=== PATIENT | female | born 1965 | race Caucasian/White ===

== ENCOUNTER 2023-02-14 19:05 | Inpatient (IN) | payer OTHER ==
[2023-02-14 19:17] VITALS: RESP 18
[2023-02-14] MEDS ORDERED: ACETAMINOPHEN 1000 MG/100 ML BAG IVPB ONE (20:47)
[2023-02-14] MEDS ORDERED: ACETAMINOPHEN INJECTION 100 ML IVPB ONE (21:16)
[2023-02-14 21:33] LABS: BASO % 0.5 % (0-2.0); EOS % 0.3 % (0-4.5); HEMATOCRIT 16.7 % (32.4-45.2); LYMPH % 8.2 % (8-40); MCH 23.4 pg (25.7-33.7); MCHC 31.7 g/dl (32.0-36.0); MEAN CELL VOLUME 73.8 fl (80-96); MEAN PLT VOLUME 6.5 fl (7.5-11.1); MONO % 7.4 % (3.8-10.2); NEUT % 83.6 % (42.8-82.8); PLATELET COUNT 462 10^3/uL (134-434); RBC 2.26 M/mm3 (3.60-5.2); RDW 14.1 % (11.6-15.6); WHITE BLOOD COUNT 12.4 K/mm3 (4.0-10.0)
[2023-02-14 21:46] LABS: HEMOGLOBIN 5.3 GM/dL (10.7-15.3)
[2023-02-14 21:54] LABS: INR 1.12 (0.83-1.09)
[2023-02-14 21:57] LABS: ACTIVATED PTT 33.5 SECONDS (25.2-36.5); POTASSIUM 4.2 mmol/L (3.5-5.1)
[2023-02-14 22:17] LABS: ALBUMIN 2.8 g/dl (3.4-5.0); BILIRUBIN,TOTAL 0.2 mg/dL (0.2-1); BLOOD UREA NITROGEN 11.8 mg/dL (7-18); CALCIUM 8.7 mg/dL (8.5-10.1); CREATININE 0.6 mg/dL (0.55-1.3); N-TERMINAL BNP 687.8 pg/ml (5-125); TOT PROT 6.7 g/dl (6.4-8.2)
[2023-02-14] MEDS ORDERED: morphine CARPU-JECT 2 MG/1 ML DISP.SYRIN IVPUSH ONE (23:40)
[2023-02-14] MEDS ORDERED: ONDANSETRON 4 MG/2 ML VIAL IVPUSH ONE (23:41)
[2023-02-14] MEDS ORDERED: ONDANSETRON 4 MG/2 ML VIAL ONE (23:58)
[2023-02-15] MEDS ORDERED: ONDANSETRON 4 MG/2 ML VIAL IVPUSH PRN (03:06)
[2023-02-15] MEDS ORDERED: MAG HYDROX/AL HYDROX/SIMETH 30 ML UNIT-DOSE CUP PO PRN (03:07)
[2023-02-15] MEDS: ACETAMINOPHEN 1000 MG/100 ML BAG IVPB PRN ×2 (03:41→18:58)
[2023-02-15 04:51] VITALS: BMI 22.9
[2023-02-15 04:58] LABS: RETICULOCYTES 2.45 % (0.5-1.5)
[2023-02-15 10:04] LABS: BASO % 0.4 % (0-2.0); EOS % 0.5 % (0-4.5); HEMATOCRIT 19.6 % (32.4-45.2); LYMPH % 7.9 % (8-40); MCH 25.6 pg (25.7-33.7); MCHC 33.4 g/dl (32.0-36.0); MEAN CELL VOLUME 76.6 fl (80-96); MEAN PLT VOLUME 7.1 fl (7.5-11.1); MONO % 6.8 % (3.8-10.2); NEUT % 84.4 % (42.8-82.8); PLATELET COUNT 380 10^3/uL (134-434); RBC 2.56 M/mm3 (3.60-5.2); RDW 15.3 % (11.6-15.6); WHITE BLOOD COUNT 10.7 K/mm3 (4.0-10.0)
[2023-02-15 10:09] LABS: HEMOGLOBIN 6.5 GM/dL (10.7-15.3)
[2023-02-15 10:23] LABS: CALCIUM 8.7 mg/dL (8.5-10.1)
[2023-02-15 10:25] LABS: BLOOD UREA NITROGEN 10.1 mg/dL (7-18)
[2023-02-15 10:28] LABS: CREATININE 0.8 mg/dL (0.55-1.3); PHOSPHOROUS 4.2 mg/dL (2.5-4.9)
[2023-02-15] MEDS: oxyCODONE HCL 5 MG TABLET PO PRN ×2 (12:06→16:02)
[2023-02-15 15:54] LABS: EPI CELLS 30 /uL (0-25.1); HYALINE CASTS 1 /uL (0-3.1); PH,URINE 7.5 (5.0-8.0); URINE APPEARANCE CLOUDY; URINE BACTERIA 201 /uL (0-1359); URINE BILIRUBIN NEGATIVE (NEGATIVE); URINE COLOR YELLOW; URINE GLUCOSE (UA) NEGATIVE (NEGATIVE); URINE KETONE NEGATIVE (NEGATIVE); URINE LEUK ESTERASE NEGATIVE (NEGATIVE); URINE NITRITE NEGATIVE (NEGATIVE); URINE PROTEIN TRACE (NEGATIVE); URINE RBC 52 /uL (0-23.9); URINE UROBILINOGEN 0.2 mg/dL (0.2-1.0); URINE WBC 40 /uL (0-25.8)
[2023-02-15 20:31] LABS: BASO % 0.3 % (0-2.0); EOS % 0.1 % (0-4.5); HEMATOCRIT 22.4 % (32.4-45.2); HEMOGLOBIN 7.6 GM/dL (10.7-15.3); LYMPH % 5.8 % (8-40); MCHC 34.1 g/dl (32.0-36.0); MEAN CELL VOLUME 76.4 fl (80-96); MONO % 7.4 % (3.8-10.2); NEUT % 86.4 % (42.8-82.8); PLATELET COUNT 356 10^3/uL (134-434); RBC 2.94 M/mm3 (3.60-5.2); RDW 14.8 % (11.6-15.6)
[2023-02-16] MEDS ORDERED: PIPERACILLIN/TAZOB 3.375 GM 3.375 GM in DEXTROSE 5%-WATER - 50 ML IVPB ONE (00:52)
[2023-02-16] MEDS ORDERED: VANCOMYCIN/WATER FOR INJ (PEG) 750 MG/150 ML BAG IVPB ONE (01:15)
[2023-02-16] MEDS: oxyCODONE HCL 5 MG TABLET PO PRN ×3 (06:09→20:01)
[2023-02-16 09:00] LABS: BASO % 0.3 % (0-2.0); EOS % 0.4 % (0-4.5); HEMOGLOBIN 7.9 GM/dL (10.7-15.3); MCH 25.5 pg (25.7-33.7); MCHC 32.9 g/dl (32.0-36.0); MEAN CELL VOLUME 77.6 fl (80-96); MEAN PLT VOLUME 7.5 fl (7.5-11.1); MONO % 6.2 % (3.8-10.2); NEUT % 88.1 % (42.8-82.8); PLATELET COUNT 389 10^3/uL (134-434); RBC 3.09 M/mm3 (3.60-5.2); WHITE BLOOD COUNT 15.8 K/mm3 (4.0-10.0)
[2023-02-16 09:25] LABS: CALCIUM 8.8 mg/dL (8.5-10.1)
[2023-02-16 09:26] LABS: ALBUMIN 2.4 g/dl (3.4-5.0); BLOOD UREA NITROGEN 9.3 mg/dL (7-18)
[2023-02-16 09:29] LABS: BILIRUBIN,TOTAL 0.5 mg/dL (0.2-1); CREATININE 0.8 mg/dL (0.55-1.3)
[2023-02-16] MEDS ORDERED: SENNOSIDES 8.6MG TABLET (FP) PO PRN (10:07)
[2023-02-16] MEDS: CEFTRIAXONE 1 GM in DEXTROSE 5%-WATER - 50 ML IVPB SCH (12:19)
[2023-02-16] MEDS: POLYETHYLENE GLYCOL (HEALTHYLAX) 3350 17 GM PACKET PO SCH (12:19)
[2023-02-16] MEDS: ACETAMINOPHEN 500 MG TABLET (FP) PO PRN (16:07)
[2023-02-17] MEDS: ACETAMINOPHEN 500 MG TABLET (FP) PO PRN ×2 (07:45→17:16)
[2023-02-17] MEDS: oxyCODONE HCL 5 MG TABLET PO PRN ×3 (08:54→21:21)
[2023-02-17 09:21] LABS: BASO % 0.3 % (0-2.0); EOS % 0.2 % (0-4.5); HEMATOCRIT 24.5 % (32.4-45.2); HEMOGLOBIN 8.2 GM/dL (10.7-15.3); LYMPH % 5.9 % (8-40); MCH 25.4 pg (25.7-33.7); MCHC 33.2 g/dl (32.0-36.0); MEAN CELL VOLUME 76.3 fl (80-96); MONO % 7.4 % (3.8-10.2); NEUT % 86.2 % (42.8-82.8); PLATELET COUNT 362 10^3/uL (134-434); RBC 3.21 M/mm3 (3.60-5.2); RDW 15.7 % (11.6-15.6); WHITE BLOOD COUNT 15.8 K/mm3 (4.0-10.0)
[2023-02-17] MEDS: POLYETHYLENE GLYCOL (HEALTHYLAX) 3350 17 GM PACKET PO SCH (09:53)
[2023-02-17] MEDS: CEFTRIAXONE 1 GM in DEXTROSE 5%-WATER - 50 ML IVPB SCH (09:53)
[2023-02-18] MEDS: ACETAMINOPHEN 500 MG TABLET (FP) PO PRN ×2 (03:06→19:06)
[2023-02-18] MEDS: IRON SUCROSE INJECTION 200 MG in SODIUM CHLORIDE 90 ML IVPB SCH (06:22)
[2023-02-18] MEDS: POLYETHYLENE GLYCOL (HEALTHYLAX) 3350 17 GM PACKET PO SCH ×2 (09:54→21:16)
[2023-02-18] MEDS: CEFTRIAXONE 1 GM in DEXTROSE 5%-WATER - 50 ML IVPB SCH (09:54)
[2023-02-18] MEDS: oxyCODONE HCL 5 MG TABLET PO PRN ×3 (09:55→21:18)
[2023-02-19] MEDS: oxyCODONE HCL 5 MG TABLET PO PRN ×3 (06:23→22:03)
[2023-02-19] MEDS: IRON SUCROSE INJECTION 200 MG in SODIUM CHLORIDE 90 ML IVPB SCH (06:23)
[2023-02-19] MEDS: CEFTRIAXONE 1 GM in DEXTROSE 5%-WATER - 50 ML IVPB SCH (09:12)
[2023-02-19] MEDS: POLYETHYLENE GLYCOL (HEALTHYLAX) 3350 17 GM PACKET PO SCH ×2 (09:22→22:03)
[2023-02-19] MEDS: ACETAMINOPHEN 500 MG TABLET (FP) PO PRN (14:56)
[2023-02-19 15:07] LABS: HEMATOCRIT 24.5 % (32.4-45.2); HEMOGLOBIN 7.8 GM/dL (10.7-15.3); MCH 24.9 pg (25.7-33.7); MCHC 31.9 g/dl (32.0-36.0); MEAN PLT VOLUME 7.2 fl (7.5-11.1); PLATELET COUNT 363 10^3/uL (134-434); RBC 3.15 M/mm3 (3.60-5.2); RDW 16.5 % (11.6-15.6)
[2023-02-20] MEDS: oxyCODONE HCL 5 MG TABLET PO PRN ×3 (06:02→18:09)
[2023-02-20] MEDS: IRON SUCROSE INJECTION 200 MG in SODIUM CHLORIDE 90 ML IVPB SCH (06:42)
[2023-02-20] MEDS: POLYETHYLENE GLYCOL (HEALTHYLAX) 3350 17 GM PACKET PO SCH ×2 (09:08→21:01)
[2023-02-20] MEDS: CEFTRIAXONE 1 GM in DEXTROSE 5%-WATER - 50 ML IVPB SCH (09:08)
[2023-02-20 09:57] LABS: BASO % 0.6 % (0-2.0); EOS % 0.7 % (0-4.5); HEMOGLOBIN 9.4 GM/dL (10.7-15.3); LYMPH % 7.1 % (8-40); MCH 25.7 pg (25.7-33.7); MCHC 33.5 g/dl (32.0-36.0); MEAN CELL VOLUME 76.7 fl (80-96); MONO % 8.9 % (3.8-10.2); NEUT % 82.7 % (42.8-82.8); PLATELET COUNT 483 10^3/uL (134-434); RBC 3.66 M/mm3 (3.60-5.2); WHITE BLOOD COUNT 14.1 K/mm3 (4.0-10.0)
[2023-02-20 10:00] LABS: POTASSIUM 4.1 mmol/L (3.5-5.1)
[2023-02-20 10:02] LABS: ALBUMIN 2.5 g/dl (3.4-5.0); CALCIUM 9.5 mg/dL (8.5-10.1)
[2023-02-20 10:03] LABS: BLOOD UREA NITROGEN 11.1 mg/dL (7-18)
[2023-02-20 10:06] LABS: CREATININE 0.8 mg/dL (0.55-1.3)
[2023-02-20 10:07] LABS: BILIRUBIN,TOTAL 0.2 mg/dL (0.2-1); TOT PROT 6.8 g/dl (6.4-8.2)
[2023-02-20] MEDS ORDERED: FENTANYL PATCH WASTE TD SCH (19:51)
[2023-02-20] MEDS ORDERED: fentaNYL 12mcg/hr PATCH.TD72 TD SCH (20:00)
[2023-02-20] MEDS: ACETAMINOPHEN 500 MG TABLET (FP) PO PRN (21:02)
[2023-02-21] MEDS: oxyCODONE HCL 5 MG TABLET PO PRN ×3 (06:51→16:30)
[2023-02-21] MEDS: IRON SUCROSE INJECTION 200 MG in SODIUM CHLORIDE 90 ML IVPB SCH (06:51)
[2023-02-21] MEDS: POLYETHYLENE GLYCOL (HEALTHYLAX) 3350 17 GM PACKET PO SCH (10:16)
[2023-02-21 18:28] VITALS: BP 135/74; PULSE 71; TEMP 98.1
== END 2023-02-21 18:15 | disposition home or self-care (01) | DRG 343 ==
LOC: JER 19:05 → JERBED 02-15 01:10 → J6S 02-15 04:16
PROVIDERS: ADMIT Internal Medicine; ATTEND Internal Medicine
PROC: 30233N1 Transfusion of Nonautologous Red Blood Cells into Peripheral Vein, Percutaneous Approach (ICD-10-PCS; principal; 2023-02-15)
DX: C79.51 Secondary malignant neoplasm of bone (principal); N13.30 Unspecified hydronephrosis; C53.9 Malignant neoplasm of cervix uteri, unspecified; D63.0 Anemia in neoplastic disease; G89.3 Neoplasm related pain (acute) (chronic); M54.9 Dorsalgia, unspecified
CPT/HCPCS: 36415; 36430; 71046-TC-FY; 71250-TC; 72148-TC; 73562-TC-RT-FY; 74177-TC; 76705-TC; 80048; 80053; 81003; 82272; 82728; 83540; 83550; 83615; 83735; 83880; 84100; 84484; 85025; 85027; 85045; 85610; 85730; 86850; 86900; 86901; 86922; 87040; 87077; 87086; 87635; 93005; 93010; 93970-TC; 97116-GP; 97161-GP; 99285-25; J1756; P9038; P9058; Q9967

== ENCOUNTER 2023-02-23 18:32 | Inpatient (IN) | payer OTHER ==
[2023-02-23 18:39] VITALS: BMI 22.8
[2023-02-23 20:35] LABS: BASO % 0.7 % (0-2.0); EOS % 1.1 % (0-4.5); HEMOGLOBIN 8.9 GM/dL (10.7-15.3); LYMPH % 10.6 % (8-40); MCH 25.4 pg (25.7-33.7); MEAN CELL VOLUME 77.1 fl (80-96); MEAN PLT VOLUME 6.7 fl (7.5-11.1); MONO % 9.8 % (3.8-10.2); NEUT % 77.8 % (42.8-82.8); PLATELET COUNT 556 10^3/uL (134-434); RBC 3.51 M/mm3 (3.60-5.2); RDW 18.2 % (11.6-15.6); WHITE BLOOD COUNT 11.8 K/mm3 (4.0-10.0)
[2023-02-23 20:39] LABS: EPI CELLS 32 /uL (0-25.1); HYALINE CASTS 1 /uL (0-3.1); PH,URINE 6.5 (5.0-8.0); URINE APPEARANCE CLEAR; URINE BACTERIA 32 /uL (0-1359); URINE BILIRUBIN NEGATIVE (NEGATIVE); URINE COLOR YELLOW; URINE GLUCOSE (UA) NEGATIVE (NEGATIVE); URINE KETONE NEGATIVE (NEGATIVE); URINE LEUK ESTERASE 2+ (NEGATIVE); URINE NITRITE NEGATIVE (NEGATIVE); URINE PROTEIN NEGATIVE (NEGATIVE); URINE RBC 22 /uL (0-23.9); URINE UROBILINOGEN 0.2 mg/dL (0.2-1.0); URINE WBC 29 /uL (0-25.8)
[2023-02-23 20:54] LABS: POTASSIUM 5.5 mmol/L (3.5-5.1)
[2023-02-23 20:57] LABS: CALCIUM 9.5 mg/dL (8.5-10.1)
[2023-02-23 20:58] LABS: ALBUMIN 2.4 g/dl (3.4-5.0); BLOOD UREA NITROGEN 28.5 mg/dL (7-18)
[2023-02-23] MEDS ORDERED: morphine SULFATE 4 MG/ML VIAL IVPUSH ONE (20:59)
[2023-02-23] MEDS ORDERED: ONDANSETRON 4 MG/2 ML VIAL IVPUSH ONE ×2 (20:59)
[2023-02-23 21:01] LABS: BILIRUBIN,DIRECT 0.1 mg/dL (0.0-0.2)
[2023-02-23 21:02] LABS: BILIRUBIN,TOTAL 0.3 mg/dL (0.2-1); CREATININE 3.8 mg/dL (0.55-1.3)
[2023-02-23 21:03] LABS: TOT PROT 6.5 g/dl (6.4-8.2)
[2023-02-23] MEDS ORDERED: SODIUM CHLORIDE 0.9% 500 ML INFUS.BAG IV ONE (21:14)
[2023-02-23 21:45] LABS: ANISOCYTOSIS 1+; MACROCYTOSIS 0
[2023-02-23] MEDS ORDERED: ACETAMINOPHEN 1000 MG/100 ML BAG IVPB ONE (21:48)
[2023-02-23] MEDS ORDERED: PIPERACILLIN/TAZOB 3.375 GM 3.375 GM in DEXTROSE 5%-WATER - 50 ML IVPB ONE (21:48)
[2023-02-23] MEDS ORDERED: VANCOMYCIN 1 GM in D5W (PRE-DOCKED) 1,000 MG/250 ML (RESTRICTED TO ID ONLY IVPB ONE (21:48)
[2023-02-23] MEDS ORDERED: ONDANSETRON 4 MG/2 ML VIAL ONE (21:49)
[2023-02-23] MEDS ORDERED: ACETAMINOPHEN INJECTION 100 ML IVPB ONE (21:57)
[2023-02-23] MEDS ORDERED: VANCOMYCIN/WATER FOR INJ (PEG) 1,000 MG/200 ML BAG IVPB ONE (22:16)
[2023-02-23] MEDS ORDERED: PIPERACILLIN/TAZOB 3.375 GM 3.375 GM/50 ML BAG IVPB ONE (22:16)
[2023-02-24] MEDS ORDERED: DEXTROSE 5%-0.45% SALINE 1,000 ML IV SCH (00:01)
[2023-02-24 06:24] LABS: BASO % 0.8 % (0-2.0); EOS % 0.8 % (0-4.5); HEMATOCRIT 25.7 % (32.4-45.2); HEMOGLOBIN 8.5 GM/dL (10.7-15.3); LYMPH % 8.6 % (8-40); MCHC 32.8 g/dl (32.0-36.0); MEAN CELL VOLUME 79.2 fl (80-96); MEAN PLT VOLUME 7.1 fl (7.5-11.1); MONO % 8.9 % (3.8-10.2); NEUT % 80.9 % (42.8-82.8); PLATELET COUNT 489 10^3/uL (134-434); RBC 3.25 M/mm3 (3.60-5.2); RDW 17.8 % (11.6-15.6); WHITE BLOOD COUNT 10.5 K/mm3 (4.0-10.0)
[2023-02-24 06:39] LABS: CHLORIDE 97 mmol/L (98-107); SODIUM 133 mmol/L (136-145)
[2023-02-24 06:41] LABS: CALCIUM 8.7 mg/dL (8.5-10.1); CO2 27 mmol/L (21-32); GLUCOSE,RANDOM 92 mg/dL (74-106)
[2023-02-24 06:44] LABS: SGOT/AST 65 U/L (15-37); SGPT/ALT 45 U/L (13-61)
[2023-02-24 06:45] LABS: CREATININE 4.4 mg/dL (0.55-1.3)
[2023-02-24 06:46] LABS: BILIRUBIN,TOTAL 0.3 mg/dL (0.2-1); TOT PROT 5.4 g/dl (6.4-8.2)
[2023-02-24 07:06] LABS: ALBUMIN 1.9 g/dl (3.4-5.0); ALK PHOS 191 U/L (45-117); ANION GAP 10 MMOL/L (8-16); POTASSIUM 6.1 mmol/L (3.5-5.1)
[2023-02-24] MEDS ORDERED: DEXTROSE 50%-WATER - 25 GM/50 ML VIAL IVPUSH ONE (07:16)
[2023-02-24] MEDS ORDERED: INSULIN REGULAR HUMAN 100 UNITS/ML *VIAL IVPUSH ONE (07:17)
[2023-02-24] MEDS ORDERED: CALCIUM GLUCONATE 10% - 1,000 MG/10 ML VIAL IVPUSH ONE (07:18)
[2023-02-24] MEDS ORDERED: DEXTROSE 50%-WATER 25 GM/50 ML DISP.SYRIN ONE (08:34)
[2023-02-24] MEDS ORDERED: CALCIUM GLUCONATE 10% - 1,000 MG/10 ML VIAL ONE (08:34)
[2023-02-24] MEDS ORDERED: PIPERACILLIN/TAZOB 2.25 GM 2.25 GM/50 ML BAG IVPB ONE (09:35)
[2023-02-24] MEDS ORDERED: oxyCODONE HCL 5 MG TABLET ONE (10:57)
[2023-02-24] MEDS: PIPERACILLIN/TAZOB 2.25 GM 2.25 GM in DEXTROSE 5%-WATER - 50 ML IVPB SCH ×2 (11:00→18:14)
[2023-02-24] MEDS: oxyCODONE HCL 5 MG TABLET PO PRN ×2 (11:10→18:14)
[2023-02-24] MEDS: morphine SO4 SUSTAINED ACTING 15 MG TABLET.SA PO SCH ×2 (11:22→22:58)
[2023-02-24] MEDS ORDERED: HEPARIN NA (PORCINE) 5,000 UNITS/ML 1ML VIAL ONE (14:32)
[2023-02-24] MEDS: HEPARIN NA (PORCINE) 5,000 UNITS/ML 1ML VIAL SQ SCH ×2 (14:51→22:59)
[2023-02-24 15:36] LABS: BLOOD UREA NITROGEN 33.9 mg/dL (7-18); CALCIUM 9.3 mg/dL (8.5-10.1)
[2023-02-24 15:40] LABS: CREATININE 4.8 mg/dL (0.55-1.3)
[2023-02-24] MEDS ORDERED: SODIUM ZIRCONIUM CYCLOSILICATE (LOKELMA) 5 GM PACKET PO ONE ×2 (16:00→21:15)
[2023-02-24] MEDS: SODIUM ZIRCONIUM CYCLOSILICATE (LOKELMA) 5 GM PACKET PO SCH (22:59)
[2023-02-24] MEDS: DOCUSATE SODIUM 100 MG CAPSULE (FP) PO PRN (23:08)
[2023-02-25] MEDS: PIPERACILLIN/TAZOB 2.25 GM 2.25 GM in DEXTROSE 5%-WATER - 50 ML IVPB SCH ×3 (01:24→18:31)
[2023-02-25 07:20] LABS: BASO % 0.7 % (0-2.0); EOS % 1.6 % (0-4.5); HEMATOCRIT 27.3 % (32.4-45.2); HEMOGLOBIN 8.9 GM/dL (10.7-15.3); LYMPH % 8.4 % (8-40); MCH 25.9 pg (25.7-33.7); MCHC 32.6 g/dl (32.0-36.0); MEAN CELL VOLUME 79.6 fl (80-96); MONO % 8.7 % (3.8-10.2); NEUT % 80.6 % (42.8-82.8); PLATELET COUNT 556 10^3/uL (134-434); RBC 3.43 M/mm3 (3.60-5.2); RDW 18.4 % (11.6-15.6); WHITE BLOOD COUNT 9.4 K/mm3 (4.0-10.0)
[2023-02-25 07:32] LABS: INR 1.06 (0.83-1.09); PROTHROMBIN TIME (PATIENT) 12.3 SEC (9.7-13.0)
[2023-02-25 07:37] LABS: POTASSIUM 5.7 mmol/L (3.5-5.1)
[2023-02-25 07:42] LABS: CALCIUM 9.1 mg/dL (8.5-10.1)
[2023-02-25 07:43] LABS: ALBUMIN 1.9 g/dl (3.4-5.0); BLOOD UREA NITROGEN 37.8 mg/dL (7-18)
[2023-02-25 07:46] LABS: CREATININE 5.8 mg/dL (0.55-1.3)
[2023-02-25 07:48] LABS: BILIRUBIN,TOTAL 0.3 mg/dL (0.2-1); TOT PROT 5.6 g/dl (6.4-8.2)
[2023-02-25] MEDS: SODIUM ZIRCONIUM CYCLOSILICATE (LOKELMA) 5 GM PACKET PO SCH ×2 (10:03→21:37)
[2023-02-25] MEDS: HEPARIN NA (PORCINE) 5,000 UNITS/ML 1ML VIAL SQ SCH (10:03)
[2023-02-25] MEDS: morphine SO4 SUSTAINED ACTING 15 MG TABLET.SA PO SCH ×3 (10:03→21:37)
[2023-02-25] MEDS: POLYETHYLENE GLYCOL (HEALTHYLAX) 3350 17 GM PACKET PO SCH ×2 (10:30→21:37)
[2023-02-25] MEDS ORDERED: SODIUM CHLORIDE 1,000 ML IV SCH (12:15)
[2023-02-25] MEDS: oxyCODONE HCL 5 MG TABLET PO PRN ×2 (12:17→20:13)
[2023-02-25] MEDS ORDERED: FENTANYL CITRATE/PF 50 MCG/ML VIAL ONE ×2 (16:13→17:05)
[2023-02-25] MEDS: DOCUSATE SODIUM 100 MG CAPSULE (FP) PO PRN (20:13)
[2023-02-25] MEDS ORDERED: VANCOMYCIN 500 MG in DEXTROSE 5%-WATER - 100 ML IVPB SCH (22:00)
[2023-02-26] MEDS: PIPERACILLIN/TAZOB 2.25 GM 2.25 GM in DEXTROSE 5%-WATER - 50 ML IVPB SCH ×3 (03:20→17:40)
[2023-02-26] MEDS: oxyCODONE HCL 5 MG TABLET PO PRN ×3 (06:20→19:50)
[2023-02-26 07:47] LABS: POTASSIUM 4.6 mmol/L (3.5-5.1)
[2023-02-26 07:53] LABS: BLOOD UREA NITROGEN 27.5 mg/dL (7-18); CREATININE 2.8 mg/dL (0.55-1.3)
[2023-02-26 07:54] LABS: BILIRUBIN,TOTAL 0.3 mg/dL (0.2-1); TOT PROT 7.2 g/dl (6.4-8.2)
[2023-02-26 08:21] LABS: ALBUMIN 2.5 g/dl (3.4-5.0); CALCIUM 10.6 mg/dL (8.5-10.1)
[2023-02-26] MEDS: POLYETHYLENE GLYCOL (HEALTHYLAX) 3350 17 GM PACKET PO SCH ×2 (10:37→22:08)
[2023-02-26] MEDS: SODIUM ZIRCONIUM CYCLOSILICATE (LOKELMA) 5 GM PACKET PO SCH ×2 (10:37→10:44)
[2023-02-26] MEDS: morphine SO4 SUSTAINED ACTING 15 MG TABLET.SA PO SCH ×2 (10:38→22:06)
[2023-02-26] MEDS: SODIUM CHLORIDE 0.45% 1,000 ML IV SCH (17:40)
[2023-02-26] MEDS: HEPARIN NA (PORCINE) 5,000 UNITS/ML 1ML VIAL SQ SCH (22:18)
[2023-02-27] MEDS: oxyCODONE HCL 5 MG TABLET PO PRN ×3 (02:32→22:02)
[2023-02-27] MEDS: PIPERACILLIN/TAZOB 2.25 GM 2.25 GM in DEXTROSE 5%-WATER - 50 ML IVPB SCH ×2 (03:14→09:30)
[2023-02-27] MEDS: SODIUM CHLORIDE 0.45% 1,000 ML IV SCH ×2 (04:54→16:32)
[2023-02-27] MEDS ORDERED: ACETAMINOPHEN 1000 MG/100 ML BAG IVPB ONE (05:05)
[2023-02-27 08:21] LABS: POTASSIUM 3.7 mmol/L (3.5-5.1)
[2023-02-27 08:26] LABS: CALCIUM 9.6 mg/dL (8.5-10.1)
[2023-02-27 08:27] LABS: ALBUMIN 2.2 g/dl (3.4-5.0); BLOOD UREA NITROGEN 15.6 mg/dL (7-18)
[2023-02-27 08:29] LABS: CREATININE 1.1 mg/dL (0.55-1.3)
[2023-02-27 08:31] LABS: BILIRUBIN,TOTAL 0.3 mg/dL (0.2-1)
[2023-02-27] MEDS: DOCUSATE SODIUM 100 MG CAPSULE (FP) PO PRN (09:30)
[2023-02-27] MEDS: HEPARIN NA (PORCINE) 5,000 UNITS/ML 1ML VIAL SQ SCH ×2 (09:31→21:27)
[2023-02-27] MEDS: POLYETHYLENE GLYCOL (HEALTHYLAX) 3350 17 GM PACKET PO SCH ×2 (09:31→21:27)
[2023-02-27] MEDS: morphine SO4 SUSTAINED ACTING 15 MG TABLET.SA PO SCH ×2 (09:32→22:12)
[2023-02-27] MEDS ORDERED: amLODIPine BESYLATE 5 MG TABLET (FP) PO ONE (10:51)
[2023-02-27] MEDS ORDERED: DOCUSATE SODIUM 100 MG CAPSULE (FP) PO PRN (16:43)
[2023-02-27] MEDS ORDERED: MAGNESIUM HYDROX 2400MG/30ML ORAL SUSPENSION 30 ML CUP PO ONE (16:49)
[2023-02-27] MEDS ORDERED: SENNOSIDES 8.6MG TABLET (FP) PO PRN (16:49)
[2023-02-28] MEDS ORDERED: SODIUM CHLORIDE 0.45% 1,000 ML IV SCH (00:10)
[2023-02-28] MEDS: oxyCODONE HCL 5 MG TABLET PO PRN ×3 (08:28→20:35)
[2023-02-28 08:47] LABS: BASO % 1.1 % (0-2.0); EOS % 1.1 % (0-4.5); HEMATOCRIT 31.5 % (32.4-45.2); HEMOGLOBIN 10.1 GM/dL (10.7-15.3); LYMPH % 12.4 % (8-40); MCH 25.6 pg (25.7-33.7); MCHC 32.2 g/dl (32.0-36.0); MEAN CELL VOLUME 79.4 fl (80-96); MEAN PLT VOLUME 6.3 fl (7.5-11.1); MONO % 6.4 % (3.8-10.2); PLATELET COUNT 665 10^3/uL (134-434); RBC 3.96 M/mm3 (3.60-5.2); RDW 19.7 % (11.6-15.6); WHITE BLOOD COUNT 9.3 K/mm3 (4.0-10.0)
[2023-02-28 09:11] LABS: POTASSIUM 3.5 mmol/L (3.5-5.1)
[2023-02-28 09:13] LABS: CALCIUM 10.9 mg/dL (8.5-10.1)
[2023-02-28 09:14] LABS: BLOOD UREA NITROGEN 7.6 mg/dL (7-18)
[2023-02-28 09:17] LABS: CREATININE 0.7 mg/dL (0.55-1.3)
[2023-02-28 09:18] LABS: BILIRUBIN,TOTAL 0.4 mg/dL (0.2-1); TOT PROT 7.3 g/dl (6.4-8.2)
[2023-02-28 09:27] LABS: ALBUMIN 2.8 g/dl (3.4-5.0)
[2023-02-28] MEDS: POLYETHYLENE GLYCOL (HEALTHYLAX) 3350 17 GM PACKET PO SCH ×2 (09:33→22:29)
[2023-02-28] MEDS: HEPARIN NA (PORCINE) 5,000 UNITS/ML 1ML VIAL SQ SCH ×2 (09:34→22:29)
[2023-02-28] MEDS: morphine SO4 SUSTAINED ACTING 15 MG TABLET.SA PO SCH ×2 (09:44→22:33)
[2023-02-28] MEDS ORDERED: amLODIPine BESYLATE 5 MG TABLET (FP) PO SCH (10:00)
[2023-02-28] MEDS ORDERED: amLODIPine BESYLATE 5 MG TABLET (FP) PO ONE (11:21)
[2023-02-28] MEDS: SODIUM CHLORIDE 1,000 ML IV SCH (14:28)
[2023-03-01] MEDS: oxyCODONE HCL 5 MG TABLET PO PRN ×5 (01:37→22:57)
[2023-03-01] MEDS ORDERED: amLODIPine BESYLATE 5 MG TABLET (FP) PO SCH ×2 (06:00→10:00)
[2023-03-01] MEDS: amLODIPine BESYLATE 5 MG TABLET (FP) PO SCH (06:33)
[2023-03-01] MEDS: SODIUM CHLORIDE 1,000 ML IV SCH ×3 (08:31→15:03)
[2023-03-01] MEDS: POLYETHYLENE GLYCOL (HEALTHYLAX) 3350 17 GM PACKET PO SCH ×2 (09:17→21:22)
[2023-03-01] MEDS: HEPARIN NA (PORCINE) 5,000 UNITS/ML 1ML VIAL SQ SCH ×2 (09:18→21:22)
[2023-03-01] MEDS: morphine SO4 SUSTAINED ACTING 15 MG TABLET.SA PO SCH ×2 (09:23→21:23)
[2023-03-01 10:11] LABS: POTASSIUM 3.3 mmol/L (3.5-5.1)
[2023-03-01 10:13] LABS: ALBUMIN 2.5 g/dl (3.4-5.0); BLOOD UREA NITROGEN 7.4 mg/dL (7-18); CALCIUM 9.4 mg/dL (8.5-10.1)
[2023-03-01 10:16] LABS: CREATININE 0.5 mg/dL (0.55-1.3)
[2023-03-01 10:18] LABS: BILIRUBIN,TOTAL 0.2 mg/dL (0.2-1); TOT PROT 6.3 g/dl (6.4-8.2)
[2023-03-01] MEDS ORDERED: POTASSIUM CHLORIDE ORAL LIQUID 20 MEQ/15 ML PO ONE (14:30)
[2023-03-02] MEDS: oxyCODONE HCL 5 MG TABLET PO PRN ×4 (05:05→22:42)
[2023-03-02] MEDS: HEPARIN NA (PORCINE) 5,000 UNITS/ML 1ML VIAL SQ SCH ×2 (09:16→21:51)
[2023-03-02] MEDS: morphine SO4 SUSTAINED ACTING 15 MG TABLET.SA PO SCH (09:18)
[2023-03-02] MEDS: amLODIPine BESYLATE 5 MG TABLET (FP) PO SCH (09:19)
[2023-03-02] MEDS: POLYETHYLENE GLYCOL (HEALTHYLAX) 3350 17 GM PACKET PO SCH ×2 (09:20→21:51)
[2023-03-02] MEDS ORDERED: ACETAMINOPHEN 1000 MG/100 ML BAG IVPB PRN (09:43)
[2023-03-02] MEDS ORDERED: FENTANYL PATCH WASTE TD PRN (09:43)
[2023-03-02 09:54] LABS: POTASSIUM 3.2 mmol/L (3.5-5.1)
[2023-03-02] MEDS ORDERED: fentaNYL 12mcg/hr PATCH.TD72 TD SCH (10:00)
[2023-03-02 10:03] LABS: BLOOD UREA NITROGEN 10.9 mg/dL (7-18)
[2023-03-02 10:05] LABS: ALBUMIN 2.9 g/dl (3.4-5.0)
[2023-03-02 10:06] LABS: CREATININE 0.6 mg/dL (0.55-1.3)
[2023-03-02 10:07] LABS: BILIRUBIN,TOTAL 0.3 mg/dL (0.2-1); TOT PROT 7.2 g/dl (6.4-8.2)
[2023-03-02] MEDS ORDERED: ACETAMINOPHEN 1000 MG/100 ML BAG IVPB ONE (10:45)
[2023-03-02] MEDS: SODIUM CHLORIDE 1,000 ML IV SCH (14:30)
[2023-03-02] MEDS: POTASSIUM CHLORIDE ORAL LIQUID 20 MEQ/15 ML PO SCH ×2 (14:55→21:51)
[2023-03-03] MEDS: SODIUM CHLORIDE 1,000 ML IV SCH (07:33)
[2023-03-03 08:51] LABS: BASO % 1.3 % (0-2.0); EOS % 2.5 % (0-4.5); HEMATOCRIT 30.4 % (32.4-45.2); HEMOGLOBIN 10.2 GM/dL (10.7-15.3); LYMPH % 18.1 % (8-40); MCH 26.4 pg (25.7-33.7); MCHC 33.5 g/dl (32.0-36.0); MEAN CELL VOLUME 78.8 fl (80-96); MEAN PLT VOLUME 6.8 fl (7.5-11.1); MONO % 8.6 % (3.8-10.2); NEUT % 69.5 % (42.8-82.8); PLATELET COUNT 571 10^3/uL (134-434); RBC 3.85 M/mm3 (3.60-5.2); RDW 19.9 % (11.6-15.6); WHITE BLOOD COUNT 8.1 K/mm3 (4.0-10.0)
[2023-03-03 09:15] LABS: POTASSIUM 4.3 mmol/L (3.5-5.1)
[2023-03-03 09:20] LABS: ALBUMIN 2.9 g/dl (3.4-5.0); CALCIUM 10.1 mg/dL (8.5-10.1)
[2023-03-03 09:21] LABS: BLOOD UREA NITROGEN 10.1 mg/dL (7-18)
[2023-03-03 09:23] LABS: CREATININE 0.5 mg/dL (0.55-1.3)
[2023-03-03 09:25] LABS: BILIRUBIN,TOTAL 0.4 mg/dL (0.2-1); TOT PROT 7.1 g/dl (6.4-8.2)
[2023-03-03] MEDS: HEPARIN NA (PORCINE) 5,000 UNITS/ML 1ML VIAL SQ SCH ×2 (10:01→22:12)
[2023-03-03] MEDS: amLODIPine BESYLATE 5 MG TABLET (FP) PO SCH (10:01)
[2023-03-03] MEDS: POLYETHYLENE GLYCOL (HEALTHYLAX) 3350 17 GM PACKET PO SCH ×2 (10:01→22:11)
[2023-03-03] MEDS: oxyCODONE HCL 5 MG TABLET PO PRN ×3 (10:04→20:13)
[2023-03-03] MEDS: ACETAMINOPHEN 1000 MG/100 ML BAG IVPB PRN (22:15)
[2023-03-04] MEDS: oxyCODONE HCL 5 MG TABLET PO PRN ×2 (03:59→19:06)
[2023-03-04] MEDS: SODIUM CHLORIDE 1,000 ML IV SCH (06:54)
[2023-03-04] MEDS: ACETAMINOPHEN 1000 MG/100 ML BAG IVPB PRN (08:02)
[2023-03-04] MEDS: HEPARIN NA (PORCINE) 5,000 UNITS/ML 1ML VIAL SQ SCH (09:40)
[2023-03-04] MEDS: amLODIPine BESYLATE 5 MG TABLET (FP) PO SCH (09:41)
[2023-03-04] MEDS: POLYETHYLENE GLYCOL (HEALTHYLAX) 3350 17 GM PACKET PO SCH (09:46)
[2023-03-04] MEDS ORDERED: FENTANYL PATCH WASTE TD PRN (11:43)
[2023-03-04] MEDS ORDERED: fentaNYL 25mcg/hr PATCH.TD72 TD SCH (11:45)
[2023-03-04 22:26] VITALS: BP 125/76; PULSE 84; RESP 18; TEMP 98.6
== END 2023-03-04 21:09 | disposition short-term general hospital (02) | DRG 518 ==
LOC: JER 18:32 → JERBED 19:56 → J4W 02-24 17:43 → J5S 02-27 16:19 → J6S 02-28 16:41
PROVIDERS: ADMIT Internal Medicine; ATTEND Internal Medicine
PROC: 0T9330Z Drainage of Right Kidney Pelvis with Drainage Device, Percutaneous Approach (ICD-10-PCS; principal; 2023-02-25)
PROC: 0T9430Z Drainage of Left Kidney Pelvis with Drainage Device, Percutaneous Approach (ICD-10-PCS; 2023-02-25)
PROC: BT13ZZZ Fluoroscopy of Bilateral Kidneys (ICD-10-PCS; 2023-02-25)
DX: C53.9 Malignant neoplasm of cervix uteri, unspecified (principal); C77.0 Secondary and unspecified malignant neoplasm of lymph nodes of head, face and neck; N17.9 Acute kidney failure, unspecified; C79.51 Secondary malignant neoplasm of bone; E87.1 Hypo-osmolality and hyponatremia; N13.30 Unspecified hydronephrosis; N13.8 Other obstructive and reflux uropathy; R17 Unspecified jaundice; C80.1 Malignant (primary) neoplasm, unspecified; R62.7 Adult failure to thrive; E83.52 Hypercalcemia; D50.9 Iron deficiency anemia, unspecified; E87.5 Hyperkalemia
CPT/HCPCS: 36415; 50432; 76775-TC; 80048; 80053; 81003; 82248; 82310; 83880; 83970; 85025; 85610; 87040; 87070; 87075; 87086; 87102; 87116; 87205; 87206; 87210; 87635; 93005; 93010; 93970-TC; 97116-GP; 97163-GP; 99285-25; J1644